=== PATIENT | female | born 1985 | race African-American/Black ===

== ENCOUNTER 2023-06-17 14:06 | Outpatient (AMB) | payer OTHER, SELFPAY ==
--- NOTE | 2023-06-17 14:13 | MHC.OFFWIV ---
Intake Vital Signs 06/17/23 14:21 Height 5 ft 4 in Weight 248 lb 4 oz BMI 42.6 BP 128/74 Blood Pressure Location Lt brachial Position Sitting Pulse 92 Pulse Source Pulse Oximeter Temp 97.9 F Temp Source Temporal Artery Scan Pulse Oximetry (%) 100 Oxygen Delivery Method Room Air Intake Visit Reasons: EP lumps on each side of throat Intake Note: Pt is here c/o having bumps on the inside of her mouth. Pt states she has been feeling extra tired as well as having right ear discomfort. Patient Tobacco Use Status: Never used Tobacco Allergies No Known Allergies [No Known Allergies*] Allergy (Unverified 06/17/23 14:13) Do you need a note to return to daycare/school/sports/work: Yes HPI HPI Comments History of Present Illness Details Patient presents to the walk-in today for sick visit complains of bilateral ear pain, sore throat worse with swallowing and fatigue Denies known sick contacts Symptoms started approximately 1 week ago, but over the weekend she noticed the lymph nodes in her neck were uncomfortably swollen, sore throat and fatigue became worse Denies chest pain, headache, shortness of breath, palpitations, fevers, nausea, vomiting, diarrhea Denies rashes PFSH Social History Patient Tobacco Use Status: Never used Tobacco Review of Systems Const All systems reviewed & are unremarkable except as noted in HPI and below Physical Exam Vital Signs: Last Vital Signs Temp 97.9 F 06/17/23 14:21 Pulse 92 06/17/23 14:21 BP 128/74 06/17/23 14:21 Pulse Ox 100 06/17/23 14:21 Oxygen Delivery Method Room Air 06/17/23 14:21 BMI result Body Mass Index 42.6 General: awake, alert, oriented. Answers questions appropriately. Fully engaged in examination. Skin: warm, dry, intact HEENT: TMs intact bilaterally, no redness. Posterior pharynx erythematous without exudate bilaterally. Tonsils swollen bilaterally. Anterior cervical lymph nodes swollen bilaterally. Moist oral mucosa. Sclera without icterus or injection. Cardiac: External chest normal in appearance. Respiratory: No cough. LSCTAB. Abdomen: without gross distension. Neurological: Oriented to person, place, time and situation. Thought process intact. Psychiatric: Appropriate mood and affect. Good judgment and insight. Results AMB Rapid Strep AMB Rapid Strep Negative Last Edit by Eliane Lopes CMA on 06/17/23 14:40 AMB Rapid [facility] AMB Rapid [facility] Negative Last Edit by Mg Cameron MA on 06/17/23 15:06 Results Reviewed Results Reviewed: Laboratory Last Values Strep Scn [facility] Negative 06/17/23 14:38 Rapid strep negative Monospot negative Assessment & Plan Assessment & Plan (1) Tonsillitis: Code(s): J03.90 - Acute tonsillitis, unspecified Plan Rapid strep negative, Monospot negative Z-Ernesto as directed Prednisone 40 mg p.o. daily x5 days Rest, drink plenty of fluids. Tylenol or Motrin as needed Work note provided All questions and concerns were answered, patient agrees with plan Follow with primary care or return to the clinic for any new or worsening symptoms Orders: Orders AMB Rapid Strep Screen Today Z13.9 - Encounter for screening, unspecified Medications: New prednisone 40 mg (2 x 20 mg) PO DAILY 10 tabs 0RF 5 days azithromycin For 250 mg dose pack: take 500 mg today (day 1), then 250 mg for 4 days (days 2-5) PO 6 tabs 0RF Coding Level of Care Code Est Pt Level 3 (26759) Diagnoses Tonsillitis J03.90
[2023-06-17 14:21] VITALS: BP 128/74; PULSE 92; TEMP 36.6; O2SAT 100; BMI 42.6
== END 2023-06-17 15:47 | disposition home or self-care (01) ==
PROVIDERS: Visit Provider Registered Nurse Emergency
DX: J03.90 Acute tonsillitis, unspecified (principal)
CPT/HCPCS: 87880; 99213

== ENCOUNTER 2023-09-24 13:28 | Outpatient (AMB) | payer OTHER, SELFPAY ==
[2023-09-24 13:36] VITALS: BP 116/74; PULSE 96; TEMP 37; O2SAT 98; BMI 42.9
--- NOTE | 2023-09-24 13:36 | MHC.OFFWIV ---
Intake Vital Signs 09/24/23 13:36 Height 5 ft 4 in Weight 250 lb BMI 42.9 BP 116/74 Blood Pressure Location Rt brachial Position Sitting Pulse 96 Pulse Source Pulse Oximeter Temp 98.6 F Temp Source Oral Pulse Oximetry (%) 98 Oxygen Delivery Method Room Air Intake Visit Reasons: EP Sore throat/swollen glands Intake Note: pt is here for complaint of sore throat and swollen glands, difficulty swallowing. Symptom onset: Thursday 09/21 Patient Tobacco Use Status: Never used Tobacco Allergies No Known Allergies [No Known Allergies*] Allergy (Verified 09/24/23 13:36) Do you need a note to return to daycare/school/sports/work: Yes HPI HPI Comments History of Present Illness Details She presents to office with ST since Saturday Woke up with sick symptoms Saturday Yesterday onset of strep symptoms of pharyngitis She was seen a little while ago and negative mono and strep and improved with Azithromycin She said No fever or chills 6/10 pain in throat worse with swallowing No medicine taken for symptoms No cough, congestion Slight L ear pain due to swollen LN in neck PFSH Social History Patient Tobacco Use Status: Never used Tobacco Review of Systems Const Denies chills and Denies fever(s) ENT Denies otalgia, Denies nasal discharge, Reports sore throat, Reports throat swelling (tonsil) and Denies tongue swelling Card Denies chest pain and Denies dyspnea Resp Denies cough and Denies dyspnea Skin/Breast Denies rash Aller/Immun Reports throat swelling (tonsil) and Denies tongue swelling Physical Exam Vital Signs: Last Vital Signs Temp 98.6 F 09/24/23 13:36 Pulse 96 09/24/23 13:36 BP 116/74 09/24/23 13:36 Pulse Ox 98 09/24/23 13:36 Oxygen Delivery Method Room Air 09/24/23 13:36 BMI result Body Mass Index 42.9 General: Non-toxic, NAD. Speaking full sentences. Handling secretions. Skin: Warm dry throughout Eye: EOMI HENT: Airway patent. Uvula midline. + tonsillar edema, pharyngeal erythema, tonsillar exudates. Uvula midline. 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 Bilateral canals clear. TM non-erythematous, non-bulging. No TM perforation or hemotympanum noted. LN: + tender edematous L sided cervical lymphadenopathy Respiratory: CTA bilaterally. No wheezes, rales or rhonchi Cardiac: RRR. No murmur MSK: Full ROM extremities. Neurology: A/O. No aphasia or facial droop. Gait without abnormality Psych: Good mood and affect Results AMB Rapid Strep AMB Rapid Strep Negative Last Edit by Tino Hastings CMA on 09/24/23 13:57 Results Reviewed Results Reviewed: Laboratory Last Values Strep Scn [facility] Negative 09/24/23 13:52 Assessment & Plan Assessment & Plan (1) Exudative pharyngitis: Code(s): J02.9 - Acute pharyngitis, unspecified Plan: Patient seen and evaluated. Strep negative Cent[facility] 3. + exudative pharyngitis Penicillin New toothbrush Finish antibiotics to completion ER s/s discussed Patient gave verbal understanding and had no additional questions or concerns at time of discharge All questions answered Orders: Orders AMB Rapid Strep Screen Today Inga Singh PA-C Z13.9 - Encounter for screening, unspecified Medications: New penicillin V potassium 500 mg PO BID 20 tabs 0RF Razia Hardin PA-C Coding Level of Care Code Est Pt Level 3 (69927) Diagnoses Exudative pharyngitis J02.9
== END 2023-09-24 14:31 | disposition home or self-care (01) ==
PROVIDERS: Visit Provider Physician Assistant
DX: J02.9 Acute pharyngitis, unspecified (principal)
CPT/HCPCS: 87880; 99213